=== PATIENT | male | born 1945 | race Caucasian/White ===

== ENCOUNTER → 2019-12-11 13:10 | Outpatient (CLI) | payer MEDICARE, SELFPAY ==
--- NOTE | 2019-12-11 13:20 | CT_ITS ---
STUDY: CT CHEST WITHOUT CONTRAST- LOW DOSE SCREENING PROTOCOL REASON FOR EXAM: Male, 74 years old. Current smoker. 50 pack per year history. No current symptoms of lung cancer or pulmonary infection. Shared decision-making with referring PCP documented in patient''s record. RADIATION DOSAGE (If Supplied By Facility): CTDIvol = ( 2.01 ) mGy, DLP = ( 76.25 ) mGycm TECHNIQUE: Low dose screening CT examination performed from the base of the neck to the upper abdomen. Sagittal and coronal reformatted images performed. Sagittal and coronal MIP images provided. The measurements provided are average, rounded measurements per ACR guidelines. COMPARISON: None. FINDINGS: Mild emphysematous changes. Mild bilateral apical scarring. No noncalcified nodule or mass. There is no demonstrated pleural abnormality. Normal heart and pericardium. There are calcifications of the coronary arteries. Normal mediastinum. Normal hilar regions. Normal unenhanced pulmonary arteries. Normal aorta arch and descending thoracic aorta. Mild levoscoliosis of the thoracic spine with degenerative disc disease. Questionable incompletely imaged abdominal aortic aneurysm. Correlation with CT or CTA of the abdomen and pelvis would be useful. CT/Low Dose CT Lung Screening IMPRESSION: 1. Questionable abdominal aortic aneurysm and correlation with CT or CT angiogram of the abdomen and pelvis is recommended.. 2. Incidental findings include mild emphysema with bilateral apical scarring and calcified coronary artery plaque.. ASSESSMENT CATEGORY: LungRADS 1 - Negative. Continue annual screening with LDCT in 12 months, per established ACR guidelines. Electronically Signed: Roshan Ledezma MD at 13:13 EST Tel , Service support ,
== END ==
PROVIDERS: PCP Family Medicine; Referring Provider Family Medicine
DX: F17.210 Nicotine dependence, cigarettes, uncomplicated (principal)
CPT/HCPCS: G0297

== ENCOUNTER → 2024-01-12 | Outpatient (CLI) | payer MEDICARE, SELFPAY ==
--- NOTE | 2024-01-12 17:00 | CT_ITS ---
STUDY: LOW DOSE CT LUNG CANCER SCREENING REASON FOR EXAM: Male, 78 years old. CURRENT TOBACCO USE RADIATION DOSAGE (If Supplied By Facility): CTDIvol = ( 2.01 ) mGy, DLP = ( 84.54 ) mGycm TECHNIQUE: No contrast was administered. Low dose technique was utilized (average mAS-38 and kVp 120). 1.25 mm axial source images with a slice interval of 1.25-mm were reconstructed in lung windows. 2.5 mm axial source images with a slice interval of 2.5-mm were reconstructed in lung windows. 5.0 mm axial source images with a slice interval of 5.0-mm were reconstructed in soft tissue windows. COMPARISON: Comparison is made with prior study dated December 11, 2019. NODULES: No suspicious nodules are seen. Emphysema: Hyperinflation. Mild degree of emphysematous changes more prominent in the upper lobes. Endobronchial lesion: None Aorta: Atherosclerotic calcific plaques. CORONARY ARTERIES: Coronary artery calcification is seen. Heart: Unremarkable Pulmonary artery: Unremarkable Mediastinal nodes: Remarkable Other chest and abdominal findings: Abdominal aortic aneurysm with evidence of covered stent placement. CT/Low Dose CT Lung Screening IMPRESSION: Lung-RADS category 2 - Continue annual screening with LDCT in 12 months. IMPORTANT NOTES FOR USE: ACR Lung-RADS Version 1.1 Assessment Categories Release Date: 2018 Category: Coded 0-4 bases on nodule(s) with highest degree of suspicion. Negative screen is defined as categories 1 and 2; a positive screen is defined as categories 3 and 4. Category 3 and 4A nodules that are unchanged on interval CT should be coded as category 2, and individuals returned to screening in 12 months. Category 4X: Category 3 or 4 nodules with additional imaging findings that increase the suspicion of lung cancer, such as spiculation, GGN that doubles in size in 1 year, enlarged lymph notes, etc. Category Modifiers: S (significant finding unrelated to lung cancer) Electronically Signed: Gerard Decker MD at 11:01 EDT ,
== END | disposition home or self-care (01) ==
LOC: CT 16:50
PROVIDERS: PCP Family Medicine; Referring Provider Family Medicine; Visit Provider Family Medicine
DX: Z12.2 Encounter for screening for malignant neoplasm of respiratory organs (principal); J43.9 Emphysema, unspecified; Z72.0 Tobacco use; I25.10 Atherosclerotic heart disease of native coronary artery without angina pectoris; I71.40 Abdominal aortic aneurysm, without rupture, unspecified
CPT/HCPCS: 71271